=== PATIENT | female | born 1990 | race Asian ===

== ENCOUNTER 2019-01-15 07:42 | Inpatient (IN) | payer OTHER ==
[~2019-01-15] VITALS: Ht 149.9 cm; Wt 76.1 kg
[2019-01-15] MEDS ORDERED: LACTATED RINGER'S 1,000 ML IV SCH ×2 (07:46→14:16)
[2019-01-15 07:58] VITALS: Ht 149.9 cm; Wt 76.1 kg
[2019-01-15] MEDS ORDERED: PREN-93 PO (07:58)
[2019-01-15 07:59] VITALS: BP 101/58; PULSE 78; RESP 18
[2019-01-15] MEDS ORDERED: CARBOPROST 250 MCG INJ IM PRN ×2 (08:00→14:30)
[2019-01-15] MEDS ORDERED: METHYLERGONOVINE 0.2 MG INJ IM PRN ×2 (08:00→14:30)
[2019-01-15] MEDS ORDERED: OXYTOCIN 30 UNITS/LR 500 ML IV PRN ×2 (08:00→14:30)
[2019-01-15] MEDS ORDERED: CEFAZOLIN 2 GM/50 ML (PMX) 50 ML IVPB SCH (08:00)
[2019-01-15] MEDS ORDERED: OXYTOCIN 30 UNITS/LR 500 ML IV SCH ×2 (08:00→14:16)
[2019-01-15] MEDS ORDERED: MISOPROSTOL 200 MCG TAB PR PRN ×2 (08:00→14:30)
[2019-01-15] MEDS ORDERED: LACTATED RINGER'S 1,000 ML IV ONE ×2 (09:29→11:30)
--- NOTE | 2019-01-15 09:29 | PREAC ---
Date/Time of Note Date/Time of Note DATE: 01/15/19 TIME: 09:28 Anesthesia Eval and Record Evaluation Time Pre-Procedure Interview DATE: 01/15/19 TIME: 09:28 Age 28 Sex female NPO: 8 hrs Preoperative diagnosis intrauterine Planned procedure repeat c section Past Medical History Past Medical History: Includes : Gestational age: (39+) Surgery & Anesthesia Issues No known issue Meds Anticoagulation: No Beta Chris within 24 hr: No Reason Beta Chris not given: Pt. not on B-Chris Reported Medications Vit No.124/Iron/FA ( Vitamin Tablet) 1 Each Tablet, 1 EACH PO DAILY, TAB 01/15/19 Current Medications Lactated Ringer's 1,000 ml @ 125 mls/hr Q8H IV Last administered on 01/15/19at 08:10; Admin Dose 125 MLS/HR; Start 01/15/19 at 07:46 Cefazolin Sodium/ Dextrose 50 ml @ 100 mls/hr ONCE IVPB ; Start 01/15/19 at 08:00 Oxytocin/Lactated Ringer's 500 ml @ 125 mls/hr POST IV ; Start 01/15/19 at 08:00 Oxytocin/Lactated Ringer's 500 ml @ 0 mls/hr ONCE PRN IV .VAGINAL BLEEDING; Start 01/15/19 at 08:00 Methylergonovine Maleate (Methergine) 0.2 mg ONCE PRN IM .VAGINAL BLEEDING; Start 01/15/19 at 08:00 Carboprost Tromethamine (Hemabate) 250 mcg ONCE PRN IM .VAGINAL BLEEDING; Start 01/15/19 at 08:00 Misoprostol (Cytotec) 1,000 mcg ONCE PRN OK .VAGINAL BLEEDING; Start 01/15/19 at 08:00 Meds reviewed: Yes Allergies Coded Allergies: No Known Allergy (Unverified , 01/15/19) Allergies Reviewed: Yes Labs/Studies Labs Reviewed: Reviewed by anesthesiologist Result Diagram: 01/15/19 0800 Laboratory Tests 01/15/19 08:00 test: N/A Pre-procedure Exam Last vitals Vital Signs Date Temp Pulse Resp B/P (MAP) Pulse Ox O2 O2 Flow FiO2 Time Delivery Rate 01/15/19 98.2 78 18 101/58 Room Air 07:59 (72) Airway: Adequate mouth opening, Adequate thyromental dist Mallampati: Mallampati II Teeth: Normal Lung: Normal Heart: Normal ASA Physical Status ASA physical status: 2 Emergency: None Planned Anesthetic Neuraxial: Spinal Planned Pain Management Sub-arachniod narcotics, Parenteral pain med Pre-operative Attestations Prior to commencing anesthesia and surgery, the patient was re-evaluated, there was verification of: *The patient's identity *The results of appropriate recent lab work and preoperative vital signs *The above evaluation not changing prior to induction *Anesthetic plan, risk benefits, alternative and complications discussed with patient/family; questions answered; patient/family understands, accepts and wishes to proceed. AYLEEN PATEL MD Jan 15, 2019 09:28
[2019-01-15] MEDS ORDERED: CITRIC ACID/NA CITRATE 30 ML CUP PO ONE (09:30)
[2019-01-15] MEDS ORDERED: FAMOTIDINE 20 MG INJ IV ONE (09:30)
[2019-01-15] MEDS ORDERED: METOCLOPRAMIDE 10 MG INJ IV ONE (09:30)
[2019-01-15] MEDS ORDERED: morphine SULFATE/PF (10 MG/10 ML) INJ ONE (10:07)
--- NOTE | 2019-01-15 10:08 | HP ---
Date/Time of Note Date/Time of Note DATE: 01/15/19 TIME: 10:07 OB - History Hx of Present Free Text/Dictation term for repeat c/s Care: Good Care Ultrasounds: Normal mid trimester US Obstetrical Complications: None Medical Complications: None Past Family/Social History * Past Medical, Surgical, Family and Obstetric Histories reviewed from chart. OB Admission Exam Vital Signs Vital Signs Vital Signs Date Temp Pulse Resp B/P (MAP) Pulse Ox O2 O2 Flow FiO2 Time Delivery Rate 01/15/19 98.2 78 18 101/58 Room Air 07:59 (72) Physical Exam HEENT: WNL Heart: Rhythm Normal Lungs: Clear, Equal Abdomen: WNL Extremities: Normal Reflexes: Normal Cervical Dilatation: None Effacement: 0% Station: Ballotable Membranes: Intact Last 72 hours Lab Results CBC & BMP 01/15/19 08:00 OB Assessment/Plan Reason for admission: section Plan: Section FABIOLA HERRON MD Jan 15, 2019 10:08
[2019-01-15] MEDS ORDERED: PHENYLephrine (100 MCG/ML) 10ML SYG ONE (10:22)
[2019-01-15] MEDS ORDERED: CEFAZOLIN 1 GM INJ ONE (10:30)
[2019-01-15] MEDS ORDERED: ONDANSETRON 4 MG INJ ONE (10:34)
[2019-01-15] MEDS ORDERED: OXYTOCIN 30 UNITS/LR 500 ML IV ONE (10:45)
[2019-01-15] MEDS ORDERED: PROCHLORPERAZINE 10 MG INJ IV PRN (11:00)
[2019-01-15] MEDS ORDERED: KETOROLAC 30 MG INJ IV PRN ×2 (11:00)
[2019-01-15] MEDS ORDERED: NALBUPHINE HCL (10 MG/1 ML) INJ IV PRN (11:00)
[2019-01-15] MEDS ORDERED: FENTAnyl 50 MCG/ML VIAL IV PRN ×3 (11:00)
[2019-01-15] MEDS ORDERED: MEPERIDINE 25 MG INJ IV PRN (11:00)
[2019-01-15] MEDS ORDERED: ONDANSETRON 4 MG INJ IV PRN ×2 (11:00)
[2019-01-15] MEDS ORDERED: DIPHENHYDRAMINE 50 MG INJ IV PRN ×2 (11:00)
[2019-01-15] MEDS ORDERED: HYDROmorphONE 1 MG/5 ML IV SYRINGE IV PRN ×3 (11:00)
[2019-01-15] MEDS ORDERED: ZOLPIDEM 5 MG TAB PO PRN (11:00)
[2019-01-15] MEDS ORDERED: HYDROmorphONE 0.5 MG/0.5 ML SYG IV PRN ×2 (11:00)
[2019-01-15] MEDS ORDERED: NALOXONE (0.4 MG/ML) INJ IV PRN (11:00)
--- NOTE | 2019-01-15 11:14 | PAC ---
Date/Time of Note Date/Time of Note DATE: 01/15/19 TIME: 11:11 Post-Anesthesia Notes Post-Anesthesia Note Last documented vital signs Vital Signs Date Temp Pulse Resp B/P (MAP) Pulse Ox O2 O2 Flow FiO2 Time Delivery Rate 01/15/19 98.2 78 18 101/58 Room Air 07:59 (72) Activity: WNL Respiratory function: WNL Cardiovascular function: WNL Mental status: Baseline Pain reasonably controlled: Yes Hydration appropriate: Yes Nausea/Vomiting absent: Yes Comments BP: 100/58 HR: 70 RR: 15 T: 97.7 SaO2: 97% AYLEEN PATEL MD Jan 15, 2019 11:14
--- NOTE | 2019-01-15 11:18 | OPR ---
Operative Report Planned Procedure Procedure date Jan 15, 2019 Procedure(s) repeat c/s Performed by see signature line Drug Worker: LAURIE SEALS M.D. Pre-procedure diagnosis repeat c/s [id number] Anesthesia Type: [id number] spinal Post-Procedure Post-procedure diagnosis repeat c/s Findings Live Baby [], Apgars [] and [], weight [], position [], [] presentation []cord. Estimated Blood Loss: 600 - 700 mls Specimen(s) none Grafts/Implant(s) none Complication(s) none Pt Condition post procedure: stable Disposition: PACU Procedure Description Under satisfactory spinal [] anesthesia, the patient was prepped and draped and placed in a supine position, tilted to the left. Pfannenstiel incision was made, carried through the subcutaneous tissue. Bleeders brought under control with electrocautery. Fascia incised to the length of the incision. Rectus muscles from the fascia, divided midline. Peritoneum exposed, entered through a transverse incision. Exploration of abdomen revealed gravid uterus. Bladder flap was developed. Transverse incision was made in the lower segment of the uterus. Amniotic sac ruptured. clear [] amniotic fluid noted. [] Nasal oropharyngeal suction was performed. The baby was handed to the team for immediate attention. The placenta was delivered manually intact. Uterine cavity was cleaned with wet sponge and drainage established. Uterus closed in 2 layers using [] in continuous fashion. Peritoneal cavity irrigated with warm saline. Sponge, needle and instrument count reported to be correct. Abdominal peritoneum closed with [] continuously. Rectus muscle approximated with [one monocryl ]. Fascia closed with one monocryl [], and skin closed with noemy. Estimated blood loss []mL. FABIOLA HERRON MD Jan 15, 2019 11:18
[2019-01-15 14:15] VITALS: BP 101/70; PULSE 75; RESP 18
[2019-01-15] MEDS ORDERED: LANOLIN HPA 1 PKT TOP PRN (14:30)
[2019-01-15] MEDS ORDERED: NACL 0.9% 3 ML SYG IV SCH (14:30)
[2019-01-15] MEDS ORDERED: NA PHOSPHATE/BIPHOS 133 ML ENEMA PR PRN (14:30)
[2019-01-15 17:00] VITALS: BP 100/68; PULSE 70
[2019-01-15] MEDS: LACTATED RINGER'S 1,000 ML IV SCH (20:56)
[2019-01-16] MEDS: LACTATED RINGER'S 1,000 ML IV SCH ×2 (04:45→13:00)
[2019-01-16 08:00] VITALS: BP 108/65; PULSE 84; RESP 18
--- NOTE | 2019-01-16 12:24 | PN ---
Date/Time of Note Date/Time of Note DATE: 01/16/19 TIME: 12:22 OB Subjective Subjective Subjective POD#1 Patient is doing well. She denies nausea, vomiting, shortness of breath, chest pain, headache. She has been ambulating without difficulty, tolerating regular diet. Pain is well controlled on current medications OB Objective Objective Objective Vital Signs Date Temp Pulse Resp B/P (MAP) Pulse Ox O2 O2 Flow FiO2 Time Delivery Rate 01/16/19 Room Air 12:14 01/16/19 98.2 84 18 108/65 98 08:00 (79) General: AAO X 3, comfortable, NAD, appropriate mood and affect. ABD: +BS. Soft, non-tender. Uterus 2 cm below umbilicus Incision: Dry dressing Flank: No CVA tenderness (B/L) LE: Mild edema. No clubbing, cyanosis, thigh or calf tenderness (B/L). Homans 'sign is negative OB Assessment/Plan Other plan: 28 years old s/p repeat delivery POD#1 - AF, VSS - Baby is doing well, at bed side. She is bonding well - Continue care JOSE VIEDS Jan 16, 2019 12:24
[2019-01-16] MEDS: IBUPROFEN 800 MG TAB PO SCH ×2 (13:51→21:29)
[2019-01-16] MEDS: HYDROCODONE/APAP (5/325) TAB PO PRN (15:18)
[2019-01-16 16:25] VITALS: BP 93/50; PULSE 71; RESP 18
[2019-01-16 20:15] VITALS: BP 112/63; PULSE 75; RESP 18
[2019-01-17] MEDS: HYDROCODONE/APAP (5/325) TAB PO PRN (01:25)
[2019-01-17 04:00] VITALS: BP 111/56; PULSE 70; RESP 18
[2019-01-17] MEDS: IBUPROFEN 800 MG TAB PO SCH ×3 (05:33→22:29)
[2019-01-17 08:00] VITALS: BP 94/55; PULSE 72; RESP 20
--- NOTE | 2019-01-17 13:21 | DS ---
Date/Time of Note Date/Time of Note DATE: 01/17/19 TIME: 13:21 Discharge Summary Admission/Discharge Info Admit Date/Time Jan 15, 2019 at 07:42 Discharge Date/Time Discharge Diagnosis TERM PREG Patient Condition: Stable Hospital Course UNREMARKABLE Home Meds Reported Medications Vit No.124/Iron/FA ( Vitamin Tablet) 1 Each Tablet, 1 EACH PO DAILY, TAB 01/15/19 Primary Care Provider Not On Staff Doctor FABIOLA HERRON MD Jan 17, 2019 13:21
--- NOTE | 2019-01-17 13:22 | QN ---
Documentation Comment DOING WELL VSS ABD SOFT D/C HOME NEXT AM FABIOLA HERRON MD Jan 17, 2019 13:22
[2019-01-17 16:23] VITALS: BP 110/56; PULSE 78; RESP 18
[2019-01-17 20:00] VITALS: BP 131/71; PULSE 72; RESP 18
[2019-01-18 04:00] VITALS: BP 108/58; PULSE 72; RESP 19
[2019-01-18] MEDS: HYDROCODONE/APAP (5/325) TAB PO PRN (04:49)
[2019-01-18] MEDS: IBUPROFEN 800 MG TAB PO SCH ×2 (05:42→13:55)
[2019-01-18 07:45] VITALS: BP 101/59; PULSE 72; RESP 18
[2019-01-18] MEDS ORDERED: DIPHTH/TET/ACEL PERTUSS (ADULT) 0.5 ML VIAL IM* ONE (09:00)
[2019-01-18] MEDS ORDERED: MEASLES,MUMPS,RUBELLA VACCINE INJ SC* ONE (09:00)
--- NOTE | 2019-01-19 15:48 | DELSUM ---
Delivery Summary A-C Datetime Report Generated by CPN: 01/19/2019 15:48 DELIVERY PERSONNEL Gear Hobber Set Up Operator: Hatch, Salvador MATERNAL INFORMATION Delivery Anesthesia: Spinal Medications in Delivery: see anesthesia Delivery QBL (ml): 818 Placenta Cultured: No Maternal Complications: None LABOR SUMMARY EDC: 01/21/2019 00:00 No. Babies in Womb: 1 Attempted: No Labor Anesthesia: None LABOR INFORMATION Reason for Induction: Not Applicable Group B Beta Strep: Negative Antibiotics # of Doses: 1 Antibiotics Time of Last Dose: 01/15/2019 10:05 Steroids Given: None Reason Steroids Not Administered: Not Applicable MEMBRANES Membranes Rupture Method: Artificial Rupture of Membranes: 01/15/2019 10:31 Length of Rupture (hr): 0.02 Amniotic Fluid Color: Clear Amniotic Fluid Amount: Moderate Amniotic Fluid Odor: None STAGES OF LABOR Stage 3 hr: 0 Stage 3 min: 0 CSECTION DELIVERY Primary Indication: Repeat Elective Secondary Indication: N/A CSection Urgency: Non Elective CSection Incidence: Repeat Labor: No Labor Elective: Nonelective CSection Incision: Lower Uterine Transverse BABY A INFORMATION Delivery Date/Time: 01/15/2019 10:32 Method of Delivery: Born in Route : No : N/A Forceps: N/A Vacuum Extraction: N/A Shoulder Dystocia : N/A SHOULDER DYSTOCIA BABY A Infant Delivery Date/Time: 01/15/2019 10:32 PRESENTATION/POSITION BABY A Presentation: Cephalic Cephalic Presentation: Vertex Vertex Position: Left Occipital Anterior Breech Presentation: N/A PLACENTA INFORMATION BABY A Placenta Delivery Time : 01/15/2019 10:32 Placenta Method of Delivery: Manual Removal Placenta Status: Delivered SCORES BABY A Heart Rate 1 min: >100 bpm Resp Effort 1 min: Good Cry Reflex Irritability 1 min: Cough/Sneeze/Pulls Away Muscle Tone 1 min: Active Motion Color 1 min: Body [place], Extremit Blue Resuscitation Effort 1 min: Tactile Stimulation SCORE 1 MIN: 9 Heart Rate 5 min: >100 bpm Resp Effort 5 min: Good Cry Reflex Irritability 5 min: Cough/Sneeze/Pulls Away Muscle Tone 5 min: Active Motion Color 5 min: Body [place], Extremit Blue Resuscitation Effort 5 min: Tactile Stimulation SCORE 5 MIN: 9 INFANT INFORMATION BABY A Gestational Age at Delivery: 39.1 Gestational Status: Full Term- 39- 40.6 Weeks Infant Outcome : Liveborn, with signs of life Condition : Stable Infant Sex: Male IDENTIFICATION/MEDS BABY A ID Band Number: [id number] ID Band Location: Right Leg; Left Arm Sensor Applied: Yes Sensor Location : Cord Clamp Vitamin K Given : Not Given Erythromycin Given: Not Given WEIGHT/LENGTH BABY A Birthweight (gm): 3460 Weight (lb): 7 Infant Weight (oz): 10 Length (in): 19.00 Length (cm): 48.26 CORD INFORMATION BABY A No. Cord Vessels: 3 Nuchal Cord : Around Neck x1, Loose Cord Blood Taken: Yes Infant Suction: Mouth; Nose ASSESSMENT BABY A Infant Complications: None Physical Findings at Delivery: Within Normal Limits Infant Respirations: Appears Normal Grain Farmworker/ALS Called : No Infant Care By: IMTIAZ MONTGOMERY AND RT Transferred To: Remains with Mother
== END 2019-01-18 15:47 | disposition home or self-care (01) | DRG 788 ==
LOC: L-D 07:42 → PP1 14:25
PROVIDERS: ADMIT Obstetrics & Gynecology; ATTEND Obstetrics & Gynecology
PROC: 10D00Z1 Extraction of Products of Conception, Low, Open Approach (ICD-10-PCS; principal; 2019-01-15 15:00)
DX: O65.5 Obstructed labor due to abnormality of maternal pelvic organs (principal); O34.211 Maternal care for low transverse scar from previous cesarean delivery; Z3A.39 39 weeks gestation of pregnancy; Z37.0 Single live birth
CPT/HCPCS: 85025; 85610; 85730; 86592; 86850; 86900; 86901; 87340; 90715; 99464; J0690; J1885; J2274; J2370; J2405; J2590; J7120